=== PATIENT | male | born 1970 | race Caucasian/White ===

== ENCOUNTER 2023-10-14 15:02 | Emergency (ER) | payer OTHER | END 2023-10-14 15:34 | disposition home or self-care (01) | LOC: DL.ED 15:02 | DX: T63.441A Toxic effect of venom of bees, accidental (unintentional), initial encounter (principal); K21.9 Gastro-esophageal reflux disease without esophagitis; Z79.899 Other long term (current) drug therapy; Z91.030 Bee allergy status | CPT/HCPCS: 99283 ==

== ENCOUNTER 2024-02-26 21:29 | Emergency (ER) | payer OTHER ==
[2024-02-26] MEDS ORDERED: Sodium Chloride 0.9% 10 ML Syringe FLUSH PRN (22:09)
[2024-02-26] MEDS ORDERED: Dexamethasone 4 MG/ML SDV IVPUSH ONE (22:10)
[2024-02-26] MEDS: Ondansetron 4 MG/2 ML SDV IVPUSH ONE (22:26)
[2024-02-26] MEDS: HYDROmorphone 0.5 MG/0.5 ML Syringe IVPUSH ONE (22:27)
== END 2024-02-26 23:05 | disposition home or self-care (01) ==
LOC: DL.ED 21:29
DX: M46.1 Sacroiliitis, not elsewhere classified (principal); I10 Essential (primary) hypertension; K21.9 Gastro-esophageal reflux disease without esophagitis; Z91.030 Bee allergy status
CPT/HCPCS: 96365; 96375; 99283; 99284; J1100; J1171; J2405; J3490